=== PATIENT | male | born 2000 | race Caucasian/White ===

== ENCOUNTER 2020-12-08 08:26 | Emergency (ER) | payer MEDICAID, OTHER ==
[~2020-12-08] VITALS: Ht 175.3 cm; Wt 91.0 kg
[2020-12-08] MEDS ORDERED: ASPIRIN 81MG TABLET PO ONE (10:15)
[2020-12-08 10:33] LABS: BASOPHILS % 0.5 % (0.0-2.0); EOSINOPHILS % 1.6 % (0.0-5.0); HEMOGLOBIN. 15.5 g/dL (14.0-18.0); LYMPHOCYTES % 28.8 % (20.0-50.0); MEAN CORPUSCULAR HEMOGLOBIN 30.8 pg (28.0-32.0); MEAN CORPUSCULAR VOLUME 89.3 fL (80.0-94.0); MEAN PLATELET VOLUME 7.1 fl (7.4-10.4); MONOCYTES % 8.4 % (2.0-8.0); NEUTROPHILS % 60.7 % (40.0-76.0); PLATELET 310 x1000/uL (130-400); RED BLOOD CELL COUNT 5.04 mill/uL (4.7-6.1); RED CELL DISTRIBUTION WIDTH 12.5 % (11.6-14.6)
[2020-12-08 10:44] LABS: CHLORIDE 105 mEq/L (98-107)
[2020-12-08] MEDS ORDERED: IBUP-2029 MT (11:17)
[2020-12-08 11:36] VITALS: BP 118/77
== END 2020-12-08 11:40 | disposition home or self-care (01) ==
LOC: ER 08:26
DX: R07.89 Other chest pain (principal); Z79.899 Other long term (current) drug therapy
CPT/HCPCS: 36415; 71045; 80053; 83880; 84484; 85025; 93005; 99285; Z7610

== ENCOUNTER 2020-12-11 23:50 | Emergency (ER) | payer MEDICAID ==
[~2020-12-11] VITALS: Ht 175.3 cm; Wt 90.0 kg
[~2020-12-11 23:50] MED LIST: IBUP-2029 MT
[2020-12-12] MEDS ORDERED: KETOROLAC 60MG/2ML VIAL IM ONE (00:30)
[2020-12-12 00:50] VITALS: BP 125/74
== END 2020-12-12 01:00 | disposition home or self-care (01) ==
LOC: ER 23:50
DX: R07.89 Other chest pain (principal)
CPT/HCPCS: 71045; 93005; 96372; 99283; J1885

== ENCOUNTER 2022-03-31 12:43 | Emergency (ER) | payer MEDICAID ==
[~2022-03-31] VITALS: Ht 180.3 cm; Wt 93.0 kg
[2022-03-31 14:50] LABS: BASOPHILS % 0.4 % (0.0-2.0); HEMATOCRIT. 44.7 % (42.0-52.0); HEMOGLOBIN. 15.1 g/dL (14.0-18.0); LYMPHOCYTES % 20.6 % (20.0-50.0); MEAN CORPUSCULAR HEMOGLOBIN 29.6 pg (28.0-32.0); MEAN CORPUSCULAR VOLUME 87.6 fL (80.0-94.0); MONOCYTES % 5.7 % (2.0-8.0); NEUTROPHILS % 72.3 % (40.0-76.0); PLATELET 246 x1000/uL (130-400); RED CELL DISTRIBUTION WIDTH 13.1 % (11.6-14.6)
[2022-03-31 14:59] LABS: CHLORIDE 106 mEq/L (98-107)
[2022-03-31 15:05] VITALS: BP 121/75
[2022-03-31] MEDS ORDERED: IBUPROFEN 600MG TABLET PO ONE (15:30)
[2022-03-31] MEDS ORDERED: NAPR-681 MT (15:40)
== END 2022-03-31 16:05 | disposition home or self-care (01) ==
LOC: ER 12:43
DX: R07.89 Other chest pain (principal); R94.31 Abnormal electrocardiogram [ECG] [EKG]
CPT/HCPCS: 36415; 71045; 80053; 84484; 85025; 93005; 99285

== ENCOUNTER 2022-08-15 02:15 | Emergency (ER) | payer MEDICAID ==
[~2022-08-15] VITALS: Ht 175.3 cm; Wt 86.0 kg
[~2022-08-15 02:15] MED LIST changes: +NAPR-681 MT
[2022-08-15 02:26] VITALS: BP 126/81
[2022-08-15] MEDS ORDERED: AMOX1TAB16 MT (02:43)
[2022-08-15] MEDS ORDERED: TETANUS, DIPHTHERIA, PERTUSSIS VAC/PF 0.5ML (>10YR OLD) IM ONE (03:15)
[2022-08-15] MEDS ORDERED: BACITRACIN ZINC OINT UDPKT TOP ONE (03:15)
[2022-08-15] MEDS ORDERED: ASPI1TAB8 PO (05:02)
== END 2022-08-15 03:28 | disposition home or self-care (01) ==
LOC: ER 02:15
DX: S30.812A Abrasion of penis, initial encounter (principal); X58.XXXA Exposure to other specified factors, initial encounter; Y93.89 Activity, other specified; Y92.89 Other specified places as the place of occurrence of the external cause; Y99.8 Other external cause status; R51.9 Headache, unspecified
CPT/HCPCS: 90471; 90715; 99283

== ENCOUNTER 2022-10-07 23:58 | Emergency (ER) | payer MEDICAID ==
[~2022-10-07] VITALS: Ht 172.7 cm; Wt 91.3 kg
[~2022-10-07 23:58] MED LIST changes: +AMOX1TAB16 MT; +ASPI1TAB8 PO
[2022-10-08 00:12] VITALS: O2SAT 99
[2022-10-08 01:05] LABS: BASOPHILS % 0.5 % (0.0-2.0); EOSINOPHILS % 3.3 % (0.0-5.0); HEMATOCRIT. 45.8 % (42.0-52.0); HEMOGLOBIN. 15.6 g/dL (14.0-18.0); LYMPHOCYTES % 16.5 % (20.0-50.0); MEAN CORPUSCULAR HEMOGLOBIN 30.1 pg (28.0-32.0); MEAN CORPUSCULAR VOLUME 88.1 fL (80.0-94.0); MEAN PLATELET VOLUME 6.8 fl (7.4-10.4); MONOCYTES % 6.9 % (2.0-8.0); NEUTROPHILS % 72.8 % (40.0-76.0); PLATELET 293 x1000/uL (130-400); RED CELL DISTRIBUTION WIDTH 12.8 % (11.6-14.6)
[2022-10-08 01:11] LABS: CHLORIDE 105 mEq/L (98-107)
[2022-10-08] MEDS ORDERED: IBUPROFEN 600MG TABLET PO NR (02:45)
[2022-10-08] MEDS ORDERED: IBUP-2029 MT (05:57)
[2022-10-08 06:19] VITALS: BP 103/55; PULSE 63; RESP 19; TEMP 97.9
== END 2022-10-08 06:19 | disposition home or self-care (01) ==
LOC: ER 23:58
DX: R07.89 Other chest pain (principal)
CPT/HCPCS: 99285; 80053; 85025; 85379; 84484; 36415; 71045; 93005; Z7610 ×3

== ENCOUNTER 2023-01-27 02:34 | Emergency (ER) | payer MEDICAID ==
[~2023-01-27] VITALS: Ht 172.7 cm; Wt 86.0 kg
[2023-01-27 02:44] VITALS: BP 122/81; PULSE 68; RESP 16; TEMP 98; O2SAT 100
[2023-01-27] MEDS ORDERED: MAGNESIUM/ALUMINUM HYDROXIDE/SIMETHICONE 30ML UDC PO ONE (02:45)
[2023-01-27 03:11] LABS: BASOPHILS % 0.5 % (0.0-2.0); EOSINOPHILS % 2.1 % (0.0-5.0); HEMATOCRIT. 44.7 % (42.0-52.0); HEMOGLOBIN. 15.1 g/dL (14.0-18.0); LYMPHOCYTES % 33.8 % (20.0-50.0); MEAN CORPUSCULAR HEMOGLOBIN 29.6 pg (28.0-32.0); MEAN CORPUSCULAR HGB CONC 33.8 g/dL (31.0-37.0); MEAN CORPUSCULAR VOLUME 87.5 fL (80.0-94.0); MEAN PLATELET VOLUME 7.7 fl (7.4-10.4); MONOCYTES % 7.6 % (2.0-8.0); PLATELET 238 x1000/uL (130-400); RED BLOOD CELL COUNT 5.11 mill/uL (4.7-6.1); RED CELL DISTRIBUTION WIDTH 12.9 % (11.6-14.6); WHITE BLOOD COUNT 7.3 x1000/uL (4.5-11.0)
[2023-01-27 03:18] LABS: CHLORIDE 103 mEq/L (98-107); INDEX HEMOLYSI 1 (1-3); INDEX ICTERIC 1 (1-4); INDEX LIPEMIC 1 (1-3); POTASSIUM 3.6 mEq/L (3.5-5.1); SODIUM 138 mEq/L (136-145)
[2023-01-27 03:27] LABS: ALANINE AMINOTRANSFERASE 22 IU/L (13-61); ALBUMIN 4.3 g/dL (3.4-5.0); ASPARTATE AMINOTRANSFERASE 13 IU/L (15-37); BILIRUBIN TOTAL 0.6 mg/dL (0.1-1.0); CALCIUM 8.9 mg/dL (8.5-10.1); CARBON DIOXIDE 28 mEq/L (21-32); ETHANOL BLOOD < 10 mg/dL (<10); GLUCOSE 85 mg/dL (70-105); NT PRO B-TYPE NATRIURETIC PEP 9 pg/mL (5-125); PROTEIN TOTAL 7.7 g/dL (6.0-8.3); TROPONIN I HIGH SENSITIVITY 5 ng/L (<78); UREA NITROGEN BLOOD 7 mg/dL (7-21)
[2023-01-27] MEDS ORDERED: HYDR-459 MT (03:37)
== END 2023-01-27 04:05 | disposition home or self-care (01) ==
LOC: ER 03:32
DX: R07.89 Other chest pain (principal); F41.9 Anxiety disorder, unspecified; E78.00 Pure hypercholesterolemia, unspecified
CPT/HCPCS: 36415; 71045; 80053; 80320; 83880; 84484; 85025; 93005; 99285; G0480

== ENCOUNTER 2023-04-05 18:36 | Emergency (ER) | payer MEDICAID ==
[~2023-04-05] VITALS: Ht 172.7 cm; Wt 70.3 kg
[~2023-04-05 18:36] MED LIST changes: +HYDR-459 MT
[2023-04-05 19:07] VITALS: TEMP 99.1; O2SAT 100
[2023-04-05 20:48] LABS: BASOPHILS % 0.5 % (0.0-2.0); EOSINOPHILS % 0.9 % (0.0-5.0); HEMOGLOBIN. 13.8 g/dL (14.0-18.0); LYMPHOCYTES % 22.4 % (20.0-50.0); MEAN CORPUSCULAR HGB CONC 33.7 g/dL (31.0-37.0); MEAN CORPUSCULAR VOLUME 88.8 fL (80.0-94.0); MONOCYTES % 6.2 % (2.0-8.0); PLATELET 237 x1000/uL (130-400); RED BLOOD CELL COUNT 4.62 mill/uL (4.7-6.1); RED CELL DISTRIBUTION WIDTH 15.1 % (11.6-14.6); WHITE BLOOD COUNT 7.6 x1000/uL (4.5-11.0)
[2023-04-05 21:03] LABS: ALANINE AMINOTRANSFERASE 12 IU/L (10-49); ALBUMIN 4.6 g/dL (3.2-4.8); ASPARTATE AMINOTRANSFERASE 12 IU/L (<34); BILIRUBIN TOTAL 0.5 mg/dL (0.1-1.0); CALCIUM 9.7 mg/dL (8.7-10.4); CARBON DIOXIDE 25 mEq/L (21-32); CHLORIDE 107 mEq/L (98-107); CREATININE 0.7 mg/dL (0.6-1.3); GLUCOSE 91 mg/dL (70-105); POTASSIUM 4.4 mEq/L (3.5-5.1); PROTEIN TOTAL 7.7 g/dL (6.0-8.3); SODIUM 140 mEq/L (136-145); UREA NITROGEN BLOOD 10 mg/dL (9-23)
[2023-04-05 22:03] LABS: TROPONIN I HIGH SENSITIVITY < 4 ng/L (3.0-53)
[2023-04-05] MEDS ORDERED: METH-653 MT (22:07)
[2023-04-05 22:34] VITALS: BP 115/78; PULSE 82; RESP 14
== END 2023-04-05 22:36 | disposition home or self-care (01) ==
LOC: ER 18:36
DX: R07.89 Other chest pain (principal); E78.00 Pure hypercholesterolemia, unspecified
CPT/HCPCS: 36415; 80053; 84484; 85025; 93005; 99284

== ENCOUNTER 2023-04-20 10:21 | Emergency (ER) | payer MEDICAID ==
[~2023-04-20] VITALS: Ht 180.3 cm; Wt 69.0 kg
[~2023-04-20 10:21] MED LIST changes: +METH-653 MT
[2023-04-20 10:33] VITALS: BP 118/68; PULSE 85; TEMP 98.6; O2SAT 100
[2023-04-20 13:20] LABS: BASOPHILS % 0.3 % (0.0-2.0); EOSINOPHILS % 3.5 % (0.0-5.0); HEMATOCRIT. 42.5 % (42.0-52.0); HEMOGLOBIN. 14.1 g/dL (14.0-18.0); LYMPHOCYTES % 13.9 % (20.0-50.0); MEAN CORPUSCULAR HEMOGLOBIN 30.1 pg (28.0-32.0); MEAN CORPUSCULAR HGB CONC 33.2 g/dL (31.0-37.0); MEAN CORPUSCULAR VOLUME 90.8 fL (80.0-94.0); MEAN PLATELET VOLUME 7.9 fl (7.4-10.4); NEUTROPHILS % 75.3 % (40.0-76.0); PLATELET 247 x1000/uL (130-400); RED BLOOD CELL COUNT 4.68 mill/uL (4.7-6.1); WHITE BLOOD COUNT 8.2 x1000/uL (4.5-11.0)
[2023-04-20 13:33] LABS: ALANINE AMINOTRANSFERASE 12 IU/L (10-49); ALBUMIN 5.1 g/dL (3.2-4.8); ASPARTATE AMINOTRANSFERASE 13 IU/L (<34); BILIRUBIN TOTAL 0.7 mg/dL (0.1-1.0); CARBON DIOXIDE 29 mEq/L (21-32); CHLORIDE 104 mEq/L (98-107); CREATININE 0.6 mg/dL (0.6-1.3); GLUCOSE 92 mg/dL (70-105); POTASSIUM 3.9 mEq/L (3.5-5.1); PROTEIN TOTAL 7.8 g/dL (6.0-8.3); SODIUM 139 mEq/L (136-145); UREA NITROGEN BLOOD 9 mg/dL (9-23)
== END 2023-04-20 14:51 | disposition home or self-care (01) ==
LOC: ER 12:56
DX: J06.9 Acute upper respiratory infection, unspecified (principal); R10.13 Epigastric pain; E78.00 Pure hypercholesterolemia, unspecified; Z98.890 Other specified postprocedural states
CPT/HCPCS: 36415; 71045; 80053; 85025; 99284

== ENCOUNTER 2023-06-28 23:57 | Emergency (ER) | payer MEDICAID ==
[~2023-06-28] VITALS: Ht 172.7 cm; Wt 64.0 kg
[2023-06-29 00:20] VITALS: O2SAT 100
[2023-06-29] MEDS: KETOROLAC 15MG/ML VIAL IM ONE (05:36)
[2023-06-29 08:29] VITALS: BP 126/88; PULSE 64; RESP 18; TEMP 98
== END 2023-06-29 08:44 | disposition home or self-care (01) ==
LOC: ER 23:57
DX: R51.9 Headache, unspecified (principal); E78.00 Pure hypercholesterolemia, unspecified; Z79.899 Other long term (current) drug therapy; Z98.890 Other specified postprocedural states
CPT/HCPCS: 99285; 70450; 72125; 96372; J1885; Z7610

== ENCOUNTER 2023-09-13 16:16 | Emergency (ER) | payer MEDICAID, OTHER ==
[~2023-09-13] VITALS: Ht 175.3 cm; Wt 68.0 kg
[2023-09-13 16:19] VITALS: TEMP 98.7; O2SAT 100
[2023-09-13 17:05] LABS: BASOPHILS % 0.5 % (0.0-2.0); EOSINOPHILS % 2.5 % (0.0-5.0); HEMATOCRIT. 41.8 % (42.0-52.0); HEMOGLOBIN. 14.1 g/dL (14.0-18.0); LYMPHOCYTES % 36.8 % (20.0-50.0); MEAN CORPUSCULAR HEMOGLOBIN 30.6 pg (28.0-32.0); MEAN CORPUSCULAR HGB CONC 33.7 g/dL (31.0-37.0); MEAN CORPUSCULAR VOLUME 90.9 fL (80.0-94.0); MEAN PLATELET VOLUME 7.9 fl (7.4-10.4); MONOCYTES % 4.9 % (2.0-8.0); NEUTROPHILS % 55.3 % (40.0-76.0); PLATELET 231 x1000/uL (130-400); RED CELL DISTRIBUTION WIDTH 13.3 % (11.6-14.6); WHITE BLOOD COUNT 6.6 x1000/uL (4.5-11.0)
[2023-09-13 17:13] LABS: CHLORIDE 104 mEq/L (98-107); POTASSIUM 4.4 mEq/L (3.5-5.1); SODIUM 138 mEq/L (136-145)
[2023-09-13 17:14] LABS: CARBON DIOXIDE 27 mEq/L (21-32)
[2023-09-13 17:15] LABS: CALCIUM 9.6 mg/dL (8.7-10.4)
[2023-09-13 17:19] LABS: CREATININE 0.9 mg/dL (0.6-1.3); GLUCOSE 91 mg/dL (70-105)
[2023-09-13 17:20] LABS: UREA NITROGEN BLOOD 12 mg/dL (9-23)
[2023-09-13 17:21] LABS: ALANINE AMINOTRANSFERASE 33 IU/L (10-49); ALBUMIN 4.8 g/dL (3.2-4.8); ASPARTATE AMINOTRANSFERASE 23 IU/L (<34)
[2023-09-13 17:22] LABS: BILIRUBIN TOTAL 0.4 mg/dL (0.1-1.0); PROTEIN TOTAL 7.4 g/dL (6.0-8.3)
[2023-09-13 17:39] LABS: CLARITY URINE CLEAR (CLEAR); COLOR URINE YELLOW (YELLOW); GLUCOSE URINE NEGATIVE (NEGATIVE); KETONES URINE NEGATIVE (NEGATIVE); LEUKOCYTE ESTERASE URINE NEGATIVE (NEGATIVE); NITRITE URINE NEGATIVE (NEGATIVE); OCCULT BLOOD URINE NEGATIVE (NEGATIVE); PROTEIN URINE NEGATIVE (NEGATIVE); SPECIFIC GRAVITY URINE 1.009 (1.005-1.030); UROBILINOGEN URINE 0.2 E.U./dL (0.2-1.0)
[2023-09-13] MEDS: MAGNESIUM/ALUMINUM HYDROXIDE/SIMETHICONE 30ML UDC PO ONE (18:26)
[2023-09-13] MEDS: ACETAMINOPHEN 325MG TABLET PO ONE (18:27)
[2023-09-13] MEDS: PANTOPRAZOLE 40MG DR TABLET PO ONE (18:27)
[2023-09-13 19:14] LABS: CHLORIDE 104 mEq/L (98-107); POTASSIUM 4.2 mEq/L (3.5-5.1); SODIUM 138 mEq/L (136-145)
[2023-09-13 19:15] LABS: CALCIUM 9.9 mg/dL (8.7-10.4); CARBON DIOXIDE 27 mEq/L (21-32)
[2023-09-13 19:20] LABS: CREATININE 0.9 mg/dL (0.6-1.3); GLUCOSE 92 mg/dL (70-105); UREA NITROGEN BLOOD 13 mg/dL (9-23)
[2023-09-13 19:27] LABS: TROPONIN I HIGH SENSITIVITY < 4 ng/L (3.0-53)
[2023-09-13] MEDS ORDERED: TOPUD MT (20:50)
[2023-09-13] MEDS ORDERED: PANT40SU MT (20:50)
[2023-09-13 22:11] VITALS: BP 109/64; PULSE 60; RESP 16
== END 2023-09-13 22:24 | disposition home or self-care (01) ==
LOC: ER 16:16
DX: K29.60 Other gastritis without bleeding (principal); R51.9 Headache, unspecified
CPT/HCPCS: 36415; 71045; 80048; 80053; 81003; 83880; 84484; 85025; 93005; 99285

== ENCOUNTER 2023-09-22 14:29 | Emergency (ER) | payer OTHER ==
[~2023-09-22] VITALS: Ht 175.3 cm; Wt 69.0 kg
[~2023-09-22 14:29] MED LIST changes: +PANT40SU MT; +TOPUD MT
[2023-09-22 14:44] VITALS: O2SAT 100
[2023-09-22 16:26] LABS: BASOPHILS % 0.5 % (0.0-2.0); EOSINOPHILS % 3.1 % (0.0-5.0); HEMATOCRIT. 41.8 % (42.0-52.0); HEMOGLOBIN. 14.1 g/dL (14.0-18.0); LYMPHOCYTES % 32.9 % (20.0-50.0); MEAN CORPUSCULAR HEMOGLOBIN 30.8 pg (28.0-32.0); MEAN CORPUSCULAR HGB CONC 33.6 g/dL (31.0-37.0); MEAN CORPUSCULAR VOLUME 91.7 fL (80.0-94.0); MEAN PLATELET VOLUME 7.8 fl (7.4-10.4); MONOCYTES % 5.6 % (2.0-8.0); NEUTROPHILS % 57.9 % (40.0-76.0); PLATELET 226 x1000/uL (130-400); RED BLOOD CELL COUNT 4.56 mill/uL (4.7-6.1); RED CELL DISTRIBUTION WIDTH 13.1 % (11.6-14.6); WHITE BLOOD COUNT 5.4 x1000/uL (4.5-11.0)
[2023-09-22 16:31] LABS: CHLORIDE 107 mEq/L (98-107); POTASSIUM 4.4 mEq/L (3.5-5.1); SODIUM 140 mEq/L (136-145)
[2023-09-22 16:32] LABS: CALCIUM 9.6 mg/dL (8.7-10.4); CARBON DIOXIDE 29 mEq/L (21-32)
[2023-09-22 16:37] LABS: CREATININE 0.9 mg/dL (0.6-1.3); GLUCOSE 91 mg/dL (70-105); UREA NITROGEN BLOOD 8 mg/dL (9-23)
[2023-09-22 16:43] LABS: TROPONIN I HIGH SENSITIVITY < 4 ng/L (3.0-53)
[2023-09-22] MEDS: PANTOPRAZOLE 40MG DR TABLET PO ONE (20:15)
[2023-09-22] MEDS: MAGNESIUM/ALUMINUM HYDROXIDE/SIMETHICONE 30ML UDC PO ONE (20:15)
[2023-09-22] MEDS: ACETAMINOPHEN 325MG TABLET PO ONE (20:15)
[2023-09-22] MEDS ORDERED: PROT40 MT (20:35)
[2023-09-22] MEDS ORDERED: MAG355OR21 MT (20:35)
[2023-09-22] MEDS ORDERED: HYDR-459 MT (20:36)
[2023-09-22 21:03] VITALS: BP 131/82; PULSE 70; RESP 18; TEMP 98.3
== END 2023-09-22 21:09 | disposition home or self-care (01) ==
LOC: ER 14:29
DX: R07.89 Other chest pain (principal); R00.2 Palpitations; Z79.899 Other long term (current) drug therapy
CPT/HCPCS: 36415; 71045; 80048; 84484; 85025; 93005; 99285

== ENCOUNTER 2023-09-24 01:23 | Emergency (ER) | payer OTHER ==
[~2023-09-24] VITALS: Ht 172.7 cm; Wt 68.0 kg
[~2023-09-24 01:23] MED LIST changes: +MAG355OR21 MT; +PROT40 MT
[2023-09-24 01:32] VITALS: O2SAT 98
[2023-09-24] MEDS: IBUPROFEN 400MG TABLET PO ONE (06:00)
[2023-09-24] MEDS: ACETAMINOPHEN 325MG TABLET PO ONE (06:00)
[2023-09-24] MEDS ORDERED: CEPH500C2 MT (07:02)
[2023-09-24 08:01] VITALS: BP 122/80; PULSE 63; RESP 16; TEMP 97.9
[2023-09-24] MEDS: FAMOTIDINE 20MG TABLET PO ONE (08:01)
[2023-09-24] MEDS: MAGNESIUM/ALUMINUM HYDROXIDE/SIMETHICONE 30ML UDC PO STA (08:01)
== END 2023-09-24 08:08 | disposition home or self-care (01) ==
LOC: ER 01:31
DX: S61.211A Laceration without foreign body of left index finger without damage to nail, initial encounter (principal); F41.9 Anxiety disorder, unspecified; G43.909 Migraine, unspecified, not intractable, without status migrainosus; Z79.899 Other long term (current) drug therapy; X58.XXXA Exposure to other specified factors, initial encounter; Y93.89 Activity, other specified; Y92.89 Other specified places as the place of occurrence of the external cause; Y99.8 Other external cause status
CPT/HCPCS: 12001; 73140; 99284

== ENCOUNTER 2023-09-26 22:25 | Emergency (ER) | payer OTHER ==
[~2023-09-26] VITALS: Ht 175.3 cm; Wt 68.0 kg
[~2023-09-26 22:25] MED LIST changes: +CEPH500C2 MT
[2023-09-26 22:30] VITALS: TEMP 98.3; O2SAT 100
[2023-09-26 22:55] LABS: BASOPHILS % 0.6 % (0.0-2.0); EOSINOPHILS % 4.9 % (0.0-5.0); HEMATOCRIT. 41.6 % (42.0-52.0); HEMOGLOBIN. 14.1 g/dL (14.0-18.0); LYMPHOCYTES % 45.3 % (20.0-50.0); MEAN CORPUSCULAR HEMOGLOBIN 31.2 pg (28.0-32.0); MEAN CORPUSCULAR HGB CONC 33.8 g/dL (31.0-37.0); MEAN CORPUSCULAR VOLUME 92.1 fL (80.0-94.0); MEAN PLATELET VOLUME 7.7 fl (7.4-10.4); MONOCYTES % 5.5 % (2.0-8.0); NEUTROPHILS % 43.7 % (40.0-76.0); PLATELET 214 x1000/uL (130-400); RED BLOOD CELL COUNT 4.52 mill/uL (4.7-6.1); RED CELL DISTRIBUTION WIDTH 13.3 % (11.6-14.6); WHITE BLOOD COUNT 5.9 x1000/uL (4.5-11.0)
[2023-09-26 23:01] LABS: CHLORIDE 102 mEq/L (98-107); POTASSIUM 3.7 mEq/L (3.5-5.1); SODIUM 138 mEq/L (136-145)
[2023-09-26 23:02] LABS: CALCIUM 9.6 mg/dL (8.7-10.4); CARBON DIOXIDE 29 mEq/L (21-32)
[2023-09-26 23:07] LABS: CREATININE 0.9 mg/dL (0.6-1.3); GLUCOSE 91 mg/dL (70-105); UREA NITROGEN BLOOD 10 mg/dL (9-23)
[2023-09-26 23:09] LABS: ALANINE AMINOTRANSFERASE 35 IU/L (10-49); ALBUMIN 4.6 g/dL (3.2-4.8); ASPARTATE AMINOTRANSFERASE 25 IU/L (<34); BILIRUBIN DIRECT 0.1 mg/dL (<=3.0); BILIRUBIN TOTAL 0.4 mg/dL (0.1-1.0); ETHANOL BLOOD < 10 mg/dL (<10); TROPONIN I HIGH SENSITIVITY < 4 ng/L (3.0-53)
[2023-09-26 23:10] LABS: PROTEIN TOTAL 7.3 g/dL (6.0-8.3)
[2023-09-27 00:42] VITALS: BP 125/97; PULSE 82; RESP 22
[2023-09-27] MEDS: IBUPROFEN 600MG TABLET PO ONE (00:42)
== END 2023-09-27 00:39 | disposition home or self-care (01) ==
LOC: ER 22:25
DX: R07.89 Other chest pain (principal); Z79.899 Other long term (current) drug therapy; Z86.59 Personal history of other mental and behavioral disorders
CPT/HCPCS: 36415; 71045; 80048; 80076; 80320; 84484; 85025; 93005; 99285; G0480

== ENCOUNTER 2023-10-19 20:36 | Emergency (ER) | payer OTHER ==
[~2023-10-19] VITALS: Ht 175.3 cm; Wt 71.0 kg
[2023-10-19 21:02] VITALS: O2SAT 99
[2023-10-19 23:43] LABS: BASOPHILS % 0.4 % (0.0-2.0); EOSINOPHILS % 1.3 % (0.0-5.0); HEMATOCRIT. 45.8 % (42.0-52.0); HEMOGLOBIN. 15.6 g/dL (14.0-18.0); LYMPHOCYTES % 32.7 % (20.0-50.0); MEAN CORPUSCULAR HEMOGLOBIN 31.1 pg (28.0-32.0); MEAN CORPUSCULAR HGB CONC 33.9 g/dL (31.0-37.0); MEAN CORPUSCULAR VOLUME 91.6 fL (80.0-94.0); MEAN PLATELET VOLUME 7.9 fl (7.4-10.4); MONOCYTES % 4.3 % (2.0-8.0); NEUTROPHILS % 61.3 % (40.0-76.0); PLATELET 240 x1000/uL (130-400); WHITE BLOOD COUNT 7.6 x1000/uL (4.5-11.0)
[2023-10-19 23:46] LABS: CHLORIDE 105 mEq/L (98-107); POTASSIUM 4.3 mEq/L (3.5-5.1); SODIUM 137 mEq/L (136-145)
[2023-10-19 23:47] LABS: CALCIUM 9.8 mg/dL (8.7-10.4); CARBON DIOXIDE 27 mEq/L (21-32)
[2023-10-19 23:52] LABS: GLUCOSE 107 mg/dL (70-105); UREA NITROGEN BLOOD 15 mg/dL (9-23)
[2023-10-20 00:36] LABS: TROPONIN I HIGH SENSITIVITY < 4 ng/L (3.0-53)
[2023-10-20 00:44] VITALS: BP 117/78; PULSE 68; RESP 20; TEMP 98.6
[2023-10-20] MEDS ORDERED: ACETAMINOPHEN 325MG TABLET PO ONE (01:45)
== END 2023-10-20 01:50 | disposition home or self-care (01) ==
LOC: ER 20:36
DX: R07.89 Other chest pain (principal); R00.2 Palpitations; M79.89 Other specified soft tissue disorders; F41.9 Anxiety disorder, unspecified; G43.909 Migraine, unspecified, not intractable, without status migrainosus; Z79.899 Other long term (current) drug therapy
CPT/HCPCS: 36415; 71045; 80048; 84484; 85025; 85379; 93005; 93971; 99285

== ENCOUNTER 2023-11-13 13:41 | Emergency (ER) | payer OTHER ==
[~2023-11-13] VITALS: Ht 175.3 cm; Wt 68.0 kg
[2023-11-13 14:02] VITALS: TEMP 98; O2SAT 100
[2023-11-13] MEDS: IBUPROFEN 600MG TABLET PO ONE (15:35)
[2023-11-13 15:38] VITALS: BP 123/73; PULSE 64; RESP 15
== END 2023-11-13 15:41 | disposition home or self-care (01) ==
LOC: ER 13:47
DX: G89.29 Other chronic pain (principal); R07.89 Other chest pain; M79.602 Pain in left arm; F41.9 Anxiety disorder, unspecified; G43.909 Migraine, unspecified, not intractable, without status migrainosus; Z79.899 Other long term (current) drug therapy
CPT/HCPCS: 71045; 93005; 99283

== ENCOUNTER 2023-11-27 18:14 | Emergency (ER) | payer OTHER ==
[~2023-11-27] VITALS: Ht 170.2 cm; Wt 60.0 kg
[2023-11-27 18:42] VITALS: BP 114/76; PULSE 73; RESP 18; TEMP 98.2; O2SAT 100
[2023-11-27 20:35] LABS: BASOPHILS % 0.5 % (0.0-2.0); EOSINOPHILS % 0.8 % (0.0-5.0); HEMATOCRIT. 45.3 % (42.0-52.0); HEMOGLOBIN. 15.2 g/dL (14.0-18.0); LYMPHOCYTES % 29.3 % (20.0-50.0); MEAN CORPUSCULAR HGB CONC 33.5 g/dL (31.0-37.0); MEAN CORPUSCULAR VOLUME 92.5 fL (80.0-94.0); MEAN PLATELET VOLUME 7.9 fl (7.4-10.4); MONOCYTES % 4.8 % (2.0-8.0); NEUTROPHILS % 64.6 % (40.0-76.0); PLATELET 251 x1000/uL (130-400); RED CELL DISTRIBUTION WIDTH 13.3 % (11.6-14.6); WHITE BLOOD COUNT 7.5 x1000/uL (4.5-11.0)
[2023-11-27 20:39] LABS: CHLORIDE 105 mEq/L (98-107); POTASSIUM 4.2 mEq/L (3.5-5.1); SODIUM 140 mEq/L (136-145)
[2023-11-27 20:40] LABS: CARBON DIOXIDE 29 mEq/L (21-32)
[2023-11-27 20:41] LABS: CALCIUM 9.5 mg/dL (8.7-10.4)
[2023-11-27 20:45] LABS: CREATININE 0.9 mg/dL (0.6-1.3); GLUCOSE 104 mg/dL (70-105)
[2023-11-27 20:46] LABS: UREA NITROGEN BLOOD 7 mg/dL (9-23)
[2023-11-27] MEDS: MAGNESIUM/ALUMINUM HYDROXIDE/SIMETHICONE 30ML UDC PO ONE (20:57)
[2023-11-27] MEDS: DICYCLOMINE 10 MG/5 ML ORAL SYR PO ONE (20:57)
[2023-11-27] MEDS: FAMOTIDINE 20MG TABLET PO ONE (20:57)
== END 2023-11-27 21:11 | disposition home or self-care (01) ==
LOC: ER 18:14
DX: R42 Dizziness and giddiness (principal); F41.9 Anxiety disorder, unspecified; G43.909 Migraine, unspecified, not intractable, without status migrainosus; Z79.899 Other long term (current) drug therapy
CPT/HCPCS: 36415; 71045; 80048; 85025; 93005; 99285

== ENCOUNTER 2023-12-12 23:59 | Emergency (ER) | payer OTHER ==
[~2023-12-12] VITALS: Ht 175.3 cm; Wt 72.0 kg
[2023-12-13 00:32] VITALS: TEMP 98.5; O2SAT 100; O2SAT 99
[2023-12-13 00:41] LABS: BASOPHILS % 0.5 % (0.0-2.0); HEMATOCRIT. 43.1 % (42.0-52.0); HEMOGLOBIN. 14.5 g/dL (14.0-18.0); LYMPHOCYTES % 39.6 % (20.0-50.0); MEAN CORPUSCULAR HEMOGLOBIN 30.9 pg (28.0-32.0); MEAN CORPUSCULAR HGB CONC 33.5 g/dL (31.0-37.0); MEAN CORPUSCULAR VOLUME 92.2 fL (80.0-94.0); MEAN PLATELET VOLUME 7.4 fl (7.4-10.4); MONOCYTES % 6.2 % (2.0-8.0); NEUTROPHILS % 52.7 % (40.0-76.0); PLATELET 229 x1000/uL (130-400); RED BLOOD CELL COUNT 4.67 mill/uL (4.7-6.1); RED CELL DISTRIBUTION WIDTH 13.4 % (11.6-14.6); WHITE BLOOD COUNT 7.1 x1000/uL (4.5-11.0)
[2023-12-13 00:52] LABS: CHLORIDE 104 mEq/L (98-107); SODIUM 139 mEq/L (136-145)
[2023-12-13 00:53] LABS: CALCIUM 9.7 mg/dL (8.7-10.4); CARBON DIOXIDE 29 mEq/L (21-32)
[2023-12-13 00:58] LABS: CREATININE 0.9 mg/dL (0.6-1.3); GLUCOSE 98 mg/dL (70-105); UREA NITROGEN BLOOD 13 mg/dL (9-23)
[2023-12-13 01:00] LABS: ALANINE AMINOTRANSFERASE 49 IU/L (10-49); ALBUMIN 5.1 g/dL (3.2-4.8); ASPARTATE AMINOTRANSFERASE 27 IU/L (<34); BILIRUBIN DIRECT 0.1 mg/dL (<=3.0); BILIRUBIN TOTAL 0.4 mg/dL (0.1-1.0)
[2023-12-13 01:01] LABS: PROTEIN TOTAL 7.7 g/dL (6.0-8.3)
[2023-12-13 01:03] LABS: ETHANOL BLOOD < 10 mg/dL (<10)
[2023-12-13 01:37] LABS: CLARITY URINE CLEAR (CLEAR); COLOR URINE YELLOW (YELLOW); GLUCOSE URINE NEGATIVE (NEGATIVE); KETONES URINE NEGATIVE (NEGATIVE); LEUKOCYTE ESTERASE URINE NEGATIVE (NEGATIVE); NITRITE URINE NEGATIVE (NEGATIVE); OCCULT BLOOD URINE NEGATIVE (NEGATIVE); PH URINE 6.5 (4.5-8.0); PROTEIN URINE NEGATIVE (NEGATIVE); SPECIFIC GRAVITY URINE 1.015 (1.005-1.030); UROBILINOGEN URINE 0.2 E.U./dL (0.2-1.0)
[2023-12-13] MEDS ORDERED: IBUPROFEN 600MG TABLET PO ONE (01:45)
[2023-12-13 01:46] LABS: *AMPHETAMINES SCREEN URINE NEGATIVE (NEGATIVE); *BARBITURATES SCREEN URINE NEGATIVE (NEGATIVE); *BENZODIAZEPINES SCREEN URINE NEGATIVE (NEGATIVE); *COCAINE SCREEN URINE NEGATIVE (NEGATIVE)
[2023-12-13 01:47] LABS: CANNABINOID URINE SCREEN NEGATIVE (NEGATIVE); ECSTASY MDMA SCREEN URINE NEGATIVE (NEGATIVE); METHADONE URINE SCREEN NEGATIVE (NEGATIVE); OPIATES URINE SCREEN NEGATIVE (NEGATIVE); PHENCYCLIDINE URINE SCREEN NEGATIVE (NEGATIVE)
[2023-12-13 02:00] VITALS: BP 127/67; PULSE 80; RESP 18
[2023-12-13] MEDS: IBUPROFEN 600MG TABLET PO NR (02:00)
[2023-12-13 02:09] LABS: INR 0.9; PROTHROMBIN TIME 10.5 sec (9.6-11.0)
[2023-12-13 03:12] LABS: TROPONIN I HIGH SENSITIVITY < 4 ng/L (3.0-53)
[2023-12-13 04:45] LABS: TROPONIN I HIGH SENSITIVITY < 4 ng/L (3.0-53)
== END 2023-12-13 05:17 | disposition home or self-care (01) ==
LOC: ER 23:59
DX: R07.89 Other chest pain (principal); R20.2 Paresthesia of skin; R53.1 Weakness; G43.909 Migraine, unspecified, not intractable, without status migrainosus; F41.9 Anxiety disorder, unspecified; Z79.899 Other long term (current) drug therapy
CPT/HCPCS: 36415; 71045; 80048; 80076; 80305; 80320; 81003; 84484; 85025; 93005; 99285; G0480

== ENCOUNTER 2024-02-14 18:45 | Emergency (ER) | payer OTHER ==
[~2024-02-14] VITALS: Ht 175.3 cm; Wt 79.0 kg
[2024-02-14 19:47] VITALS: O2SAT 100
[2024-02-14] MEDS ORDERED: LIDO700A15 TP (23:08)
[2024-02-14] MEDS ORDERED: NAPR-1176 MT (23:08)
[2024-02-14 23:20] VITALS: BP 129/86; PULSE 74; RESP 19; TEMP 36.78072; O2SAT 100
== END 2024-02-14 23:26 | disposition home or self-care (01) ==
LOC: ER 18:45
DX: M79.602 Pain in left arm (principal); F41.9 Anxiety disorder, unspecified; K21.9 Gastro-esophageal reflux disease without esophagitis; Z79.899 Other long term (current) drug therapy
CPT/HCPCS: 73030; 99283

== ENCOUNTER 2024-03-22 23:50 | Emergency (ER) | payer OTHER ==
[~2024-03-22] VITALS: Ht 175.3 cm; Wt 89.0 kg
[~2024-03-22 23:50] MED LIST changes: +LIDO700A15 TP; +NAPR-1176 MT
[2024-03-22 23:55] VITALS: O2SAT 99
[2024-03-23 00:41] VITALS: BP 140/83; PULSE 85; RESP 18; TEMP 98.9; O2SAT 100
[2024-03-23 00:52] LABS: BASOPHILS % 0.6 % (0.0-2.0); EOSINOPHILS % 1.8 % (0.0-5.0); HEMATOCRIT. 46.9 % (42.0-52.0); LYMPHOCYTES % 34.8 % (20.0-50.0); MEAN CORPUSCULAR HEMOGLOBIN 31.7 pg (28.0-32.0); MEAN CORPUSCULAR HGB CONC 34.2 g/dL (31.0-37.0); MEAN CORPUSCULAR VOLUME 92.4 fL (80.0-94.0); MEAN PLATELET VOLUME 7.1 fl (7.4-10.4); MONOCYTES % 6.6 % (2.0-8.0); NEUTROPHILS % 56.2 % (40.0-76.0); PLATELET 260 x1000/uL (130-400); RED BLOOD CELL COUNT 5.07 mill/uL (4.7-6.1); RED CELL DISTRIBUTION WIDTH 13.4 % (11.6-14.6); WHITE BLOOD COUNT 7.4 x1000/uL (4.5-11.0)
[2024-03-23 01:12] LABS: CHLORIDE 104 mEq/L (98-107); POTASSIUM 4.3 mEq/L (3.5-5.1); SODIUM 141 mEq/L (136-145)
[2024-03-23 01:13] LABS: CARBON DIOXIDE 29 mEq/L (21-32)
[2024-03-23 01:18] LABS: GLUCOSE 89 mg/dL (70-105); UREA NITROGEN BLOOD 11 mg/dL (9-23)
[2024-03-23 01:27] LABS: TROPONIN I HIGH SENSITIVITY < 4 ng/L (3.0-53)
[2024-03-23] MEDS ORDERED: BENZ200C52 MT (01:56)
[2024-03-23] MEDS ORDERED: IBUP-1523 MT (01:56)
== END 2024-03-23 02:58 | disposition home or self-care (01) ==
LOC: ER 23:50
DX: J40 Bronchitis, not specified as acute or chronic (principal); Z79.899 Other long term (current) drug therapy; Z79.82 Long term (current) use of aspirin; Z79.1 Long term (current) use of non-steroidal anti-inflammatories (NSAID); Z87.19 Personal history of other diseases of the digestive system
CPT/HCPCS: 36415; 71045; 80048; 84484; 85025; 93005; 99284; 99285

== ENCOUNTER 2024-05-09 23:12 | Emergency (ER) | payer OTHER ==
[~2024-05-09] VITALS: Ht 172.7 cm; Wt 87.0 kg
[~2024-05-09 23:12] MED LIST changes: +BENZ200C52 MT; +IBUP-1523 MT
[2024-05-10 01:08] VITALS: O2SAT 100
[2024-05-10] MEDS: ACETAMINOPHEN 325MG TABLET PO ONE (02:02)
[2024-05-10] MEDS: MAGNESIUM/ALUMINUM HYDROXIDE/SIMETHICONE 30ML UDC PO ONE (02:02)
[2024-05-10 02:14] VITALS: BP 142/92; PULSE 71; RESP 18; TEMP 36.8; O2SAT 100
[2024-05-10] MEDS ORDERED: MAG-55 MT (02:14)
[2024-05-10] MEDS ORDERED: ALBU18HF2 IH (02:14)
== END 2024-05-10 02:39 | disposition home or self-care (01) ==
LOC: ER 23:27
DX: J06.9 Acute upper respiratory infection, unspecified (principal); B34.9 Viral infection, unspecified; Z79.82 Long term (current) use of aspirin; Z79.1 Long term (current) use of non-steroidal anti-inflammatories (NSAID); F41.9 Anxiety disorder, unspecified; Z79.899 Other long term (current) drug therapy; Z20.822 Contact with and (suspected) exposure to COVID-19
CPT/HCPCS: 99284; 87430; 87070; 87804 ×2; 71045; 87426; Z7610 ×2

== ENCOUNTER 2024-05-15 22:56 | Emergency (ER) | payer OTHER ==
[~2024-05-15] VITALS: Ht 170.2 cm; Wt 87.0 kg
[~2024-05-15 22:56] MED LIST changes: +ALBU18HF2 IH; +MAG-55 MT
[2024-05-15 23:12] VITALS: O2SAT 100
[2024-05-15 23:45] LABS: BASOPHILS % 0.3 % (0.0-2.0); EOSINOPHILS % 3.6 % (0.0-5.0); HEMATOCRIT. 46.3 % (42.0-52.0); HEMOGLOBIN. 15.5 g/dL (14.0-18.0); MEAN CORPUSCULAR HGB CONC 33.5 g/dL (31.0-37.0); MEAN CORPUSCULAR VOLUME 92.6 fL (80.0-94.0); MEAN PLATELET VOLUME 7.2 fl (7.4-10.4); NEUTROPHILS % 57.1 % (40.0-76.0); PLATELET 289 x1000/uL (130-400); RED CELL DISTRIBUTION WIDTH 12.6 % (11.6-14.6); WHITE BLOOD COUNT 8.9 x1000/uL (4.5-11.0)
[2024-05-15 23:54] LABS: CHLORIDE 103 mEq/L (98-107); POTASSIUM 4.1 mEq/L (3.5-5.1); SODIUM 139 mEq/L (136-145)
[2024-05-15 23:55] LABS: CARBON DIOXIDE 29 mEq/L (21-32)
[2024-05-16] LABS: CREATININE 0.9 mg/dL (0.6-1.3); GLUCOSE 118 mg/dL (70-105); UREA NITROGEN BLOOD 14 mg/dL (9-23)
[2024-05-16 00:11] LABS: TROPONIN I HIGH SENSITIVITY < 4 ng/L (3.0-53)
[2024-05-16] MEDS: ACETAMINOPHEN 500MG TABLET PO ONE (02:37)
[2024-05-16 03:26] VITALS: BP 134/62; PULSE 78; RESP 14; TEMP 36.8; O2SAT 100
== END 2024-05-16 03:26 | disposition home or self-care (01) ==
LOC: ER 22:56
DX: R07.89 Other chest pain (principal); K21.9 Gastro-esophageal reflux disease without esophagitis; Z79.1 Long term (current) use of non-steroidal anti-inflammatories (NSAID); Z79.82 Long term (current) use of aspirin; Z79.899 Other long term (current) drug therapy
CPT/HCPCS: 36415; 71045; 80048; 84484; 85025; 93005; 99285

== ENCOUNTER 2024-07-19 21:05 | Emergency (ER) | payer OTHER ==
[~2024-07-19] VITALS: Ht 172.7 cm; Wt 91.0 kg
[2024-07-19 21:11] VITALS: TEMP 36.7; O2SAT 98
[2024-07-19 22:11] LABS: BASOPHILS % 0.4 % (0.0-2.0); EOSINOPHILS % 2.1 % (0.0-5.0); HEMATOCRIT. 43.8 % (42.0-52.0); HEMOGLOBIN. 14.6 g/dL (14.0-18.0); LYMPHOCYTES % 30.2 % (20.0-50.0); MEAN CORPUSCULAR HEMOGLOBIN 30.1 pg (28.0-32.0); MEAN CORPUSCULAR HGB CONC 33.5 g/dL (31.0-37.0); MEAN CORPUSCULAR VOLUME 89.9 fL (80.0-94.0); MEAN PLATELET VOLUME 7.2 fl (7.4-10.4); MONOCYTES % 7.7 % (2.0-8.0); NEUTROPHILS % 59.6 % (40.0-76.0); PLATELET 261 x1000/uL (130-400); RED BLOOD CELL COUNT 4.87 mill/uL (4.7-6.1); WHITE BLOOD COUNT 8.7 x1000/uL (4.5-11.0)
[2024-07-19 22:15] LABS: CHLORIDE 108 mEq/L (98-107); POTASSIUM 3.9 mEq/L (3.5-5.1); SODIUM 140 mEq/L (136-145)
[2024-07-19 22:16] LABS: CALCIUM 9.4 mg/dL (8.7-10.4); CARBON DIOXIDE 25 mEq/L (21-32)
[2024-07-19 22:21] LABS: CREATININE 0.7 mg/dL (0.6-1.3); GLUCOSE 122 mg/dL (70-105); UREA NITROGEN BLOOD 12 mg/dL (9-23)
[2024-07-19 23:52] LABS: ALANINE AMINOTRANSFERASE 57 IU/L (10-49); ALBUMIN 4.5 g/dL (3.2-4.8); ASPARTATE AMINOTRANSFERASE 29 IU/L (<34); BILIRUBIN DIRECT < 0.1 mg/dL (<=3.0); BILIRUBIN TOTAL 0.3 mg/dL (0.1-1.0); PROTEIN TOTAL 7.1 g/dL (6.0-8.3)
[2024-07-19 23:55] LABS: THYROID STIMULATING HORMONE 2.06 uIU/mL (0.55-4.78); TROPONIN I HIGH SENSITIVITY < 4 ng/L (3.0-53)
[2024-07-20 00:55] VITALS: BP 134/76; PULSE 73; RESP 12; O2SAT 99
== END 2024-07-20 00:57 | disposition home or self-care (01) ==
LOC: ER 21:05
DX: R00.2 Palpitations (principal); F41.9 Anxiety disorder, unspecified; Z79.82 Long term (current) use of aspirin; Z79.899 Other long term (current) drug therapy
CPT/HCPCS: 36415; 71045; 80048; 80076; 83880; 84443; 84484; 85025; 85379; 93005; 99285

== ENCOUNTER 2024-12-01 21:58 | Emergency (ER) | payer OTHER ==
[~2024-12-01] VITALS: Ht 172.7 cm; Wt 100.1 kg
[~2024-12-01 21:58] MED LIST changes: +IBUP-1455 MT; -IBUP-2029 MT; +LIDO-53 TP; -LIDO700A15 TP
[2024-12-01 22:16] VITALS: TEMP 36.8; O2SAT 100
[2024-12-02 01:44] LABS: BASOPHILS % 0.2 % (0.0-2.0); EOSINOPHILS % 1.9 % (0.0-5.0); HEMATOCRIT. 44.9 % (42.0-52.0); HEMOGLOBIN. 14.9 g/dL (14.0-18.0); LYMPHOCYTES % 31.5 % (20.0-50.0); MEAN PLATELET VOLUME 7.0 fl (7.4-10.4); MONOCYTES % 7.2 % (2.0-8.0); NEUTROPHILS % 59.2 % (40.0-76.0); PLATELET 268 x1000/uL (130-400); RED BLOOD CELL COUNT 5.12 mill/uL (4.7-6.1); RED CELL DISTRIBUTION WIDTH 13.2 % (11.6-14.6)
[2024-12-02 01:54] LABS: CREATININE 0.9 mg/dL (0.6-1.3); UREA NITROGEN BLOOD 13 mg/dL (9-23)
[2024-12-02 01:55] LABS: TROPONIN I HIGH SENSITIVITY < 4 ng/L (3.0-53)
[2024-12-02 03:48] VITALS: BP 127/85; PULSE 72; RESP 16; O2SAT 98
== END 2024-12-02 03:49 | disposition home or self-care (01) ==
LOC: ER 21:59
DX: R07.2 Precordial pain (principal); F41.9 Anxiety disorder, unspecified; Z79.1 Long term (current) use of non-steroidal anti-inflammatories (NSAID); Z79.82 Long term (current) use of aspirin; Z79.899 Other long term (current) drug therapy
CPT/HCPCS: 36415; 71045; 80048; 84484; 85025; 93005; 99285